=== PATIENT | female | born 1970 | race Caucasian/White ===

== ENCOUNTER 2016-10-23 10:43 | Emergency (ER) | payer MEDICAID ==
[~2016-10-23] VITALS: Ht 152.4 cm; Wt 51.3 kg
[2016-10-23 11:48] LABS: CALCIUM 8.6 mg/dL (8.5-10.1); CARBON DIOXIDE 22.6 mmol/L (21-32); CHLORIDE SERUM 99 mmol/L (98-107); CREATININE SERUM 0.7 mg/dL (0.6-1.0); GFR1 > 60 mL/min; GLUCOSE SERUM 109 mg/dL (74-106); POTASSIUM SERUM 3.3 mmol/L (3.5-5.1); SODIUM SERUM 135 mmol/L (136-145)
[2016-10-23 12:08] VITALS: BP 108/64
== END 2016-10-23 12:27 | disposition home or self-care (01) ==
LOC: ED 10:43
PROVIDERS: Emergency Medicine
DX: K52.9 Noninfective gastroenteritis and colitis, unspecified (principal); E86.0 Dehydration; G47.00 Insomnia, unspecified; F41.9 Anxiety disorder, unspecified; Z79.899 Other long term (current) drug therapy
CPT/HCPCS: J1885; J2405

== ENCOUNTER 2018-08-02 15:56 | Emergency (ER) | payer MEDICAID ==
[~2018-08-02] VITALS: Ht 147.3 cm; Wt 50.3 kg
[2018-08-02 16:30] VITALS: Ht 147.3 cm; Wt 50.3 kg
[2018-08-02 18:36] VITALS: BP 137/62
== END 2018-08-02 18:36 | disposition home or self-care (01) ==
LOC: ED 15:56
DX: R51 Headache (principal); T78.40XA Allergy, unspecified, initial encounter; X58.XXXA Exposure to other specified factors, initial encounter; F41.9 Anxiety disorder, unspecified

== ENCOUNTER 2018-11-25 10:27 | Emergency (ER) | payer MEDICAID ==
[2018-11-25 12:17] VITALS: BP 107/66
== END 2018-11-25 12:27 | disposition home or self-care (01) ==
LOC: ED 10:27
DX: R51 Headache (principal); F41.9 Anxiety disorder, unspecified
CPT/HCPCS: J1885

== ENCOUNTER 2019-04-21 10:50 | Emergency (ER) | payer MEDICAID ==
[~2019-04-21] VITALS: Ht 147.3 cm; Wt 51.3 kg
[2019-04-21 11:13] VITALS: Ht 147.3 cm; Wt 51.3 kg
[2019-04-21 13:18] VITALS: BP 104/71
== END 2019-04-21 13:18 | disposition home or self-care (01) ==
LOC: ED 10:50
DX: J06.9 Acute upper respiratory infection, unspecified (principal)